=== PATIENT | male | born 1965 | race Caucasian/White ===

== ENCOUNTER → 2021-02-05 14:40 | Outpatient (BNVA) | payer OTHER, SELFPAY | PROVIDERS: Visit Provider Internal Medicine | DX: S61.213A Laceration without foreign body of left middle finger without damage to nail, initial encounter (principal); S61.215A Laceration without foreign body of left ring finger without damage to nail, initial encounter; S62.655A Nondisplaced fracture of middle phalanx of left ring finger, initial encounter for closed fracture; W24.0XXA Contact with lifting devices, not elsewhere classified, initial encounter | CPT/HCPCS: 12002; 73130; 99203 ==

== ENCOUNTER → 2021-02-06 12:53 | Outpatient (BNVA) | payer OTHER, SELFPAY | PROVIDERS: Visit Provider Internal Medicine | DX: S62.601A Fracture of unspecified phalanx of left index finger, initial encounter for closed fracture (principal); S62.653A Nondisplaced fracture of middle phalanx of left middle finger, initial encounter for closed fracture; X58.XXXA Exposure to other specified factors, initial encounter | CPT/HCPCS: 99213 ==

== ENCOUNTER → 2021-02-10 14:01 | Outpatient (BNVA) | payer OTHER, SELFPAY | PROVIDERS: Visit Provider Internal Medicine | DX: S62.603A Fracture of unspecified phalanx of left middle finger, initial encounter for closed fracture (principal); X58.XXXA Exposure to other specified factors, initial encounter | CPT/HCPCS: 99213 ==

== ENCOUNTER → 2021-02-13 08:39 | Outpatient (BNVA) | payer OTHER, SELFPAY | PROVIDERS: Visit Provider Physician Assistant | DX: S62.629A Displaced fracture of middle phalanx of unspecified finger, initial encounter for closed fracture (principal) | CPT/HCPCS: 99202 ==

== ENCOUNTER → 2021-02-16 12:48 | Outpatient (BNVA) | payer OTHER, SELFPAY | PROVIDERS: Visit Provider Internal Medicine | DX: Z48.02 Encounter for removal of sutures (principal); S61.213A Laceration without foreign body of left middle finger without damage to nail, initial encounter; S62.665A Nondisplaced fracture of distal phalanx of left ring finger, initial encounter for closed fracture; X58.XXXA Exposure to other specified factors, initial encounter | CPT/HCPCS: 99212; 99213 ==